=== PATIENT | female | born 1970 | race Caucasian/White ===

== ENCOUNTER 2022-03-11 14:02 | Outpatient (CLI) | payer OTHER | END 2022-03-11 14:03 | disposition home or self-care (01) | LOC: BICMAMMO 14:02 | PROVIDERS: ATTEND Physician Assistant | DX: Z12.31 Encounter for screening mammogram for malignant neoplasm of breast (principal); Z80.3 Family history of malignant neoplasm of breast; Z98.82 Breast implant status | CPT/HCPCS: 77063; 77067 ==

== ENCOUNTER 2022-10-05 14:02 | Outpatient (CLI) | payer OTHER, MEDICAID | END 2022-10-05 14:03 | disposition home or self-care (01) | LOC: RAD 14:02 | PROVIDERS: ATTEND Internal Medicine | DX: R06.00 Dyspnea, unspecified (principal); J81.1 Chronic pulmonary edema; R91.8 Other nonspecific abnormal finding of lung field | CPT/HCPCS: 71046 ==

== ENCOUNTER 2023-03-20 14:33 | Outpatient (CLI) | payer OTHER | END 2023-03-20 14:34 | disposition home or self-care (01) | LOC: BICCT 14:33 | PROVIDERS: ATTEND Internal Medicine | DX: Z12.2 Encounter for screening for malignant neoplasm of respiratory organs (principal); F17.218 Nicotine dependence, cigarettes, with other nicotine-induced disorders; J96.11 Chronic respiratory failure with hypoxia; R91.1 Solitary pulmonary nodule; J98.4 Other disorders of lung | CPT/HCPCS: 71271 ==

== ENCOUNTER 2024-03-26 13:58 | Outpatient (CLI) | payer OTHER | END 2024-03-26 13:59 | disposition home or self-care (01) | LOC: BICCT 13:58 | PROVIDERS: ATTEND Internal Medicine | DX: Z12.2 Encounter for screening for malignant neoplasm of respiratory organs (principal); F17.218 Nicotine dependence, cigarettes, with other nicotine-induced disorders | CPT/HCPCS: 71271 ==